=== PATIENT | male | born 1945 | race Caucasian/White ===

== ENCOUNTER → 2017-01-14 11:14 | Outpatient (CLI) | payer MEDICARE, BC ==
[~2017-01-14 11:14] MED LIST: BAYER CHEWABLE81 MG PO; BRILINTA90 MG PO; CRESTOR10 MG PO; LOPRESSOR25 MG PO; NEXIUM20 MG PO
[2017-03-04 11:38] VITALS: BMI 31.2
== END | disposition home or self-care (01) ==
LOC: D.CT 11:14
DX: R10.11 Right upper quadrant pain (principal)

== ENCOUNTER 2017-03-04 11:14 | Outpatient (CLI) | payer MEDICARE, BC ==
[2017-03-04] MEDS ORDERED: NEXIUM20 MG PO (11:35)
[2017-03-04] MEDS ORDERED: LOPRESSOR25 MG PO (11:35)
[2017-03-04] MEDS ORDERED: BAYER CHEWABLE81 MG PO (11:37)
[2017-03-04 11:56] LABS: BASOPHILS 0.4 % (0-2); EOSINOPHILS 2.3 % (0-7); HEMATOCRIT 44.6 % (42.0-54.0); HEMOGLOBIN 15.2 g/dL (13.5-17.5); IMMATURE GRANULOCYTES 0.6 % (0-5); LYMPHOCYTES 28.6 % (15-50); MCH 30.8 pg (26.0-34.0); MCHC 34.1 g/dL (31.0-37.0); MCV 90.3 fL (80.0-100.0); MEAN PLATELET VOLUME 12.1 fL (7.4-10.4); MONOCYTES 13.1 % (2-11); PLATELET COUNT 162 10x3/uL (130-400); RBC 4.94 10x6/uL (4.20-6.10); RDW 13.9 % (11.5-14.5); WBC 6.9 10x3/uL (4.8-10.8)
[2017-03-04 12:08] LABS: CALC OSMOLALITY 278 mosm/kg (275-300); CALCIUM 9.1 mg/dL (8.5-10.1); CARBON DIOXIDE 27.9 mmol/L (21.0-32.0); CHLORIDE - SERUM 104 mmol/L (98-107); CREATININE - SERUM 0.8 mg/dL (0.6-1.3); GLUCOSE 85 mg/dL (74-106); POTASSIUM - SERUM 5.4 mmol/L (3.5-5.1); SODIUM 139 mmol/L (136-145); UREA NITROGEN 17 mg/dL (7-18); eGFR NON AFRICAN AMERICAN > 90 mL/min (90-120)
[2017-03-04] MEDS ORDERED: CRESTOR10 MG PO (12:13)
[2017-03-04] MEDS ORDERED: BRILINTA90 MG PO (14:54)
== END 2017-03-04 19:00 | disposition home or self-care (01) ==
LOC: D.CATH 11:14
PROVIDERS: Internal Medicine Interventional Cardiology
DX: I25.119 Atherosclerotic heart disease of native coronary artery with unspecified angina pectoris (principal); Z01.812 Encounter for preprocedural laboratory examination

== ENCOUNTER 2017-03-11 10:43 | Outpatient (CLI) | payer MEDICARE, BC ==
[~2017-03-11] VITALS: Ht 172.7 cm; Wt 90.9 kg
--- NOTE | ~2017-03-11 | HEMODYNAMI ---
PATIENT:MARQUIS CASTAÑEDA MEDICAL RECORD: [id number] : 43 LOCATION:D.CAT ADMISSION DATE: 03/11/17 Generatedon:03/11/201713:27 Patient name: MARQUIS CASTAÑEDA Patient #: [id number] : 1945 Date of study: 03/11/2017 Page: Of Hemodynamic Procedure Report Patient Data Patient Demographics Procedure consent was obtained First Name: MARQUIS Gender: Male Last Name: MADDY : 1945 [facility] Initial: DANIEL Age: 71 year(s) Patient #: [id number] Race: SSN: [id number] Additional ID: [id number] Contact details Address: [address] [place] [address] State: [place] City: [place] Zip code: [address] Past Medical History Allergies Allergen Reaction Date Comments Reported Other allergy 03/04/2017 Statins Admission Admission Data Admission Date: 03/11/2017 Admission Time: 10:43 Arrival Date: 03/11/2017 Arrival Time: 13:00 Admit Source: Other Insurance Payor: Medicare Height (in.): 68 BSA: 2.07 (m2) Height (cm.): 172.72 BMI: 31.47 (kg/m2) Weight (lbs.): 207 Weight (kg.): 93.89 Procedure Procedure Types Cath Procedure PCI Procedure Coronary Stent Initial Miscellaneous Procedures Moderate Sedation up to 15 minutes Procedure Description Procedure Date Procedure Date: 03/11/2017 Procedure Start Time: 13:11 Procedure End Time: 13:25 Procedure Staff Name Function Zelalem Singletary MD Performing Physician Sophia Gaviria RT Scrub Michaela Cortez RN Nurse Haile Sosa RT Monitor Procedure Data Cath Procedure Fluoroscopy Diagnostic fluoroscopy Total fluoroscopy Time: 2.9 time: 2.9 min min Diagnostic fluoroscopy Total fluoroscopy dose: 279 dose: 279 mGy mGy Contrast Material Contrast Material Type Amount (ml) Isovue 300 52 Entry Location Entry Primary Successful Side Size Upsize Upsize Entry Closure Succes sful Closure Location (Fr) 1 (Fr) 2 (Fr) Remarks Device Remarks Femoral Right 6 Fr Exoseal artery Short Estimated blood loss: 10 ml Procedure Complications No complications Procedure Medications Medication Administration Route Dosage Oxygen NC 2 l/min Heparin Flush Bag added to field 2 bags (1000units/500ml NS) Lidocaine 2% added to field 20 Versed I.V. 1 mg Fentanyl I.V. 50 mcg Versed I.V. 1 mg Fentanyl I.V. 50 mcg Heparin Bolus I.V. 4000 units Hemodynamics Rest BSA: 2.07 (m2) HGB: 15.2 (g/dl) O2 Consumption: Estimated: 231.29 (ml/min) O2 Co nsumption indexed: Estimated:111.73 (ml/min/m) Heart Rate: 60 (bpm) Snapshots Pre Cath Intra NCS Post Cath Vital Signs Time Heart Resp SPO2 etCO2 TY4esdg NIBP (mmHg) Rhythm Pain Sedation Rate (ipm) (%) (mmHg) (mmHg) Status Level (bpm) 12:51:35 62 16 98 0 0 157/77(130) NSR 0 (11) 10(A) , No pain 12:55:53 62 16 98 0 0 152/89(136) NSR 0 (11) 10(A) , No pain 13:00:11 67 14 98 0 0 153/85(127) NSR 0 (11) 10(A) , No pain 13:04:27 62 15 96 0 0 138/89(112) NSR 0 (11) 10(A) , No pain 13:08:35 67 14 96 0 0 150/96(112) NSR 0 (11) 10(A) , No pain 13:12:51 65 16 97 0 0 151/86(120) NSR 0 (11) 9(A) , No pain 13:17:11 65 16 95 0 0 136/79(112) NSR 0 (11) 9(A) , No pain 13:21:23 78 16 96 0 0 142/80(120) NSR 0 (11) 9(A) , No pain 13:23:59 76 16 96 0 0 141/84(109) NSR 0 (11) 9(A) , No pain Medications Time Medication Route Dose Verified Delivered Reason Notes Effectiveness by by 12:52:32 Oxygen NC 2 Zelalem Michaela Per physician l/min [facility]quis Cortez RN, MD 12:52:56 Heparin Flush added 2 Zelalem Zel[facility]em [facility] field MD PARK NS) 12:53:06 Lidocaine 2% added 20ml Zelalem Zelalem used for to vial [facility] procedure field MD PARK 13:05:52 Versed I.V. 1 mg Zelalem Michaela for sedation [facility] Marquis Cortez RN, MD 13:06:03 Fentanyl I.V. 50 Zelalem Michaela for sedation mcg [facility] Marquis Cortez RN, MD 13:09:40 Versed I.V. 1 mg Zelalem Michaela for sedation [facility] Mar[facility] Cortez RN, MD 13:09:43 Fentanyl I.V. 50 Zelalem Michaela for sedation mcg [facility] Marquis Cortez RN, MD 13:14:16 Heparin Bolus I.V. 4000 Zelalem Barkleyca for dose units [facility] Cortez RN anticoagulation verified MD with dr warren Procedure Log Time Note 12:30:21 Michaela Cortez RN sent for patient. Start room use. 12:37:10 Informed consent obtained and on chart 12:37:18 Diagnostic Cath Status : Elective 12:37:48 Admit Source: Other 12:38:12 Arrival Date: 03/11/2017 1:00:00 PM 12:38:29 Insurance Payor : Medicare 12:38:47 Patient Height : 68 cm 12:38:52 Patient Weight : 207 kg 12:39:22 Time tracking: Regular hours 12:39:26 Plan of Care:Hemodynamics will remain stable., Cardiac rhythm will remain stable., Comfort level will be maintained., Respiratory function will remain adequate., Patient/ family verbilizes understanding of procedure., Procedure tolerated without complication., Recovers from procedure without complications.. 12:44:40 Patient received from Pre/Post Procedure Room to CCL 1 Alert and oriented. Tansferred to table in Supine position. 12:44:42 Warm blankets applied, and winston hugger turned on for patient comfort. 12:44:42 Correct patient and procedure confirmed by team. 12:44:43 ECG and BP/O2 sat monitors applied to patient. 12:50:21 Vital chart was started 12:52:32 Oxygen 2 l/min NC was administered by Michaela Cortez RN; Per physician; 12:52:56 Heparin Flush Bag (1000units/500ml NS) 2 bags added to field was administered by Zelalem Singletary MD; used for procedure; 12:53:06 Lidocaine 2% 20ml vial added to field was administered by Zelalem Singletary MD; used for procedure; 13:00:39 Baseline sample Acquired. 13:00:47 Rhythm: sinus rhythm 13:00:49 Full Disclosure recording started 13:00:54 H&P Date Dictated: 03/11/2017 New H&P dictated by physician.. 13:00:55 Pre-procedure instructions explained to patient. 13:00:55 Pre-op teaching completed and patient verbalized understanding. 13:00:57 Family in waiting room. 13:00:59 Patient NPO since Midnight. 13:01:00 Is the patient allergic to Iodine/contrast media? No. 13:01:02 Is patient on blood thinner?Yes 13:01:05 ACC The patient was administered the following blood thiners within the last 24 hours: ACCPlavix 13:01:08 Patient diabetic? No. 13:01:10 Previous problem with sedation/anesthesia? No ? 13:01:11 Snore? Yes 13:01:13 Sleep apnea? No 13:01:14 Deviated septum? No 13:01:15 Opens mouth fully? Yes 13:01:15 Sticks out tongue? Yes 13:01:17 Airway obstruction? No ? 13:01:19 Dentures? No ? 13:01:22 Pre procedure: left dorsailis pedis pulse 1+ Palpable, but thready & weak; easily obliterated 13:01:34 Patient pain scale 0/10 ?. 13:01:37 IV patent on arrival in left forearm with 0.9% NaCl at KVO. 13:01:40 Lab results completed and on chart. 13:01:47 Left groin area was prepped with chlora-prep and draped in sterile fashion 13:01:48 Alarms reviewed by R. N. 13:01:49 Sharps counted by scrub and verified by R.N. 13:05:12 --------ALL STOP TIME OUT------ 13:05:12 Final Timeout: patient, procedure, and site verified with staff and physician. All members of the team are in agreement. 13:05:17 Left groin site verified by team. 13:05:19 Physical assessment completed. ASA score P 2 - A patient with mild systemic disease as per Zelalem Singletary MD. 13:05:23 Sedation plan: IV Moderate Sedation Versed, Fentanyl 13:05:52 Versed 1 mg I.V. was administered by Michaela Cortez RN; for sedation; 13:06:03 Fentanyl 50 mcg I.V. was administered by Michaela Cortez RN; for sedation; 13:07:47 Zero performed for pressure channel P1 13:09:20 Use device set Femoral PCI 13:09:21 Tegaderm 4 x 4 opened to sterile field. 13:09:22 Acist Manifold opened to sterile field. 13:09:23 Acist Syringe opened to sterile field. 13:09:23 Acist Hand Control opened to sterile field. 13:09:24 Bag Decanter opened to sterile field. 13:09:24 Medline Cath Pack opened to sterile field. 13:09:24 Terumo 6Fr [place] Sheath opened to sterile field. 13:09:25 St Chandan 260cm J .035 wire opened to sterile field. 13:09:25 Prediculous BasixCompak Inflation Kit opened to sterile field. 13:09:38 Medtronic Launcher 6Fr HS I guide catheter opened to sterile field. 13:09:39 Torres Reagan 300cm 0.014 guide wire opened to sterile field. 13:09:40 Versed 1 mg I.V. was administered by Michaela Cortez RN; for sedation; 13:09:43 Fentanyl 50 mcg I.V. was administered by Michaela Cortez RN; for sedation; 13:11:42 Procedure started. 13:11:46 Local anesthetic to left femerol artery with Lidocaine 2% by Zelalem Singletary MD.INITIAL ACCESS ONLY 13:13:39 A 6 Fr Short sheath was inserted into the Right Femoral artery 13:14:16 Heparin Bolus 4000 units I.V. was administered by Michaela Cortez RN; for anticoagulation; dose verified with dr warren 13:14:22 6 Fr HS 1 guide catheter was inserted over the wire 13:15:15 Reagan wire advanced. 13:17:02 Wire advanced across lesion. 13:20:03 Inflation Number: 1 A Medtronic Integrity 3.0 X 12 stent was prepped and advanced across the Mid RCA. The stent was deployed at 12 RONA for 0:45 (min:sec). 13:20:40 Stent catheter was removed intact over wire. 13:20:42 Wire removed. 13:20:42 Guide catheter removed. 13:20:52 Cordis 6Fr Exoseal opened to sterile field. 13:21:04 Sheath removed intact; hemostasis achieved with Exoseal to the Right Femoral artery. 13:21:06 Procedure ended.(Physican Out) 13:21:36 Fluoroscopy time 02.90 minutes. 13:21:40 Fluoroscopy dose: 279 mGy 13:21:40 Flurop Dose total: 279 13:21:44 Contrast amount:Isovue 300 52ml. 13:21:46 Sharps counted by scrub and verified by R.N. 13:21:47 Insertion/operative site no bleeding no hematoma. 13:21:52 Post-op/insertion site Left Femoral artery dressed using a 4 x 4 and Tegaderm. 13:21:54 Post Procedure Pulses reassessed and unchanged 13:21:57 Post-procedure physical assessment completed. ASA score P 2 - A patient with mild systemic disease as per Zelalem Singletary MD. 13:22:00 Post procedure rhythm: unchanged. 13:22:02 Estimated blood loss: 10 ml 13:22:04 Post procedure instruction explained to patient.Patient verbalizes understanding. 13:22:04 Patient needs reinforcement of post procedure teaching. 13:22:11 Procedure type changed to Cath procedure, PCI procedure, Coronary Stent Initial, Miscellaneous Procedures, Moderate Sedation up to 15 minutes 13:22:17 Procedure Complication : No complications 13:22:41 Procedure and supply charges have been captured, reviewed, submitted and are correct. 13:25:39 Vital chart was stopped 13:25:40 See physician's report for complete and final results. 13:25:43 Report given to Pre/Post Procedure Room. 13:25:46 Patient transfered to Pre/Post Procedure Room with Stretcher. 13:25:49 Procedure ended. 13:25:49 Full Disclosure recording stopped 13:25:53 End room use (Document Last) Intervention Summary Intervention Notes Time ActionType Lesion and Equipment Action# Pressure Duration Attributes Used 13:20:03 Place stent Mid RCA Medtronic 1 12 00:45 Integrity 3.0 X 12 stent Device Usage Item Name Manufacture Quantity Catalog Hospital Part Current Minimal Lot# / Number Charge Number Stock Stock Serial# Code Tegaderm 4 3M 1 [id number] [id number] 398402 5 x 4 Acist Acist 1 52102 543803 188766 711187 5 Manifold Medical Systems Inc Acist Acist 1 82044 620068 217121 231405 20 Syringe Medical Systems Inc Acist Hand Acist 1 46126 951812 119937 802960 5 Control Medical Systems Inc Bag Microtek 1 2002S 935966 83997 119564 5 Decanter Medical Inc. Medline Cardinal 1 [id number] 180254 11550 774961 5 Cath Pack Health Terumo 6Fr Terumo 1 [id number] 923404 903611 887632 [address] St Chandan 1 315435 637887 217662 741909 30 260cm J .035 wire Merit Merit 1 [id number] 543401 546366 243350 15 BasixCompak Medical Inflation Kit Medtronic Medtronic 1 [id number] 272877 20342 091838 1 Launcher 6Fr HS I guide catheter Torres Torres 1 [id number] 481106 511901 577669 1 Reagan Vascular 300cm 0.014 guide wire Medtronic Medtronic 1 [id number] 095412 975634 951193 9 [id number] Integrity 3.0 X 12 stent Cordis 6Fr Cardinal 1 EX600 837012 686869 330070 10 [facility]Star Anesthesia Signature Audit Morton Stage Time Signature Unsigned Intra-Procedure 03/11/2017 Haile Sosa 1:27:17 PM RT(R) Signatures Monitor : Haile Sosa RT Signature : Date : Time : [address] [address]
[2017-03-11] MEDS ORDERED: PLAVIX75 MG PO (11:40)
[2017-03-11 11:44] VITALS: BP 138/72; Ht 172.7 cm; Wt 90.9 kg
[2017-03-11 12:05] LABS: BASOPHILS 0.6 % (0-2); EOSINOPHILS 3.7 % (0-7); HEMATOCRIT 41.5 % (42.0-54.0); HEMOGLOBIN 14.3 g/dL (13.5-17.5); IMMATURE GRANULOCYTES 0.6 % (0-5); LYMPHOCYTES 24.5 % (15-50); MCH 30.8 pg (26.0-34.0); MCHC 34.5 g/dL (31.0-37.0); MCV 89.2 fL (80.0-100.0); MEAN PLATELET VOLUME 11.3 fL (7.4-10.4); MONOCYTES 13.3 % (2-11); NEUTROPHILS 57.3 % (40-80); PLATELET COUNT 157 10x3/uL (130-400); RBC 4.65 10x6/uL (4.20-6.10); RDW 13.7 % (11.5-14.5); WBC 6.5 10x3/uL (4.8-10.8)
[2017-03-11 12:13] LABS: ANION GAP 12.4 mmol/L (8-16); CALCIUM 9.4 mg/dL (8.5-10.1); CARBON DIOXIDE 27.6 mmol/L (21.0-32.0); CREATININE - SERUM 1.1 mg/dL (0.6-1.3)
--- NOTE | 2017-03-11 15:02 | NUR ---
1355 LYING FLAT, ROOM AIR WITH NO RESP DISTRESS. NSR RATE 62 W NO C/O CHEST PAIN. PULSES PALP X 4. L GROIN 6F EXOSEAL C/D/I WITH NO HEMATOMA OR BLEEDING NOTED. SON AT BEDSIDE.
--- NOTE | 2017-03-11 15:06 | NUR ---
1430 RESTING WITH EYES CLOSED, ALL VITALS WNL. L GROIN REMAINS C/D/I WITH NO HEMATOMA OR BLEEDING.
--- NOTE | 2017-03-11 16:56 | NUR ---
1530 L GROIN REMAINS C/D/I WITH NO HEMATOMA OR BLEEDING. EATING SANDWICH WITH ASSIST FROM SON AT BEDSIDE. ALL VITALS WNL. 1645 PIV REMOVED FROM LEFT HAND WITH BANDAID APPLIED. UP TO BEDSIDE TO DRESS. R GROIN REMAINS C/D/I WITH NO HEMATOMA OR BLEEDING.
--- NOTE | 2017-03-14 10:14 | HP ---
PATIENT: MARQUIS CASTAÑEDA MEDICAL RECORD: [id number] ACCOUNT: [id number] LOCATION:[facility] : 43 ADMISSION DATE: 03/11/17 HISTORY AND PHYSICAL EXAMINATION HISTORY OF PRESENT ILLNESS: A 71-year-old gentleman with known history of coronary artery disease, status post intervention to the LAD ____, he is being brought back in to the lab for intervention to the right coronary, previous intervention to the LAD. PAST MEDICAL HISTORY: Includes: 1. History of coronary artery disease. 2. Dyslipidemia. ALLERGIES: INTOLERANT TO STATINS. MEDICATIONS: Include losartan 100 mg p.o. daily, Nexium 40 mg p.o. daily, Plavix 75 daily and aspirin 81 mg p.o. daily. SOCIAL HISTORY: He is a nonsmoker. He takes care of all of his ADLs. PHYSICAL EXAMINATION: GENERAL: Pleasant gentleman in no acute distress. HEENT: Normocephalic, atraumatic. NECK: No JVD or bruit. HEART: Regular. LUNGS: Munoz clear. ABDOMEN: Soft, nontender. EXTREMITIES: Pulse 2+ with no edema. IMPRESSION AND PLAN: Intervention of the right coronary as described above. TRANSINT:[id number] Voice Confirmation ID: [id number] DOCUMENT ID: [id number] MARTHA ROSE MD at 1014 CC: [id number] DICTATION DATE: 03/11/17 1325 SLEEP MANAGER: 03/11/17 1430 DEP CLI 03/11/17 [address] [place] [address]
--- NOTE | 2017-03-22 13:19 | OP ---
PATIENT NAME: MARQUIS CASTAÑEDA MEDICAL RECORD: [id number] :43 LOCATION:D.CAT ADMISSION DATE: SURGEON: MARTHA ROSE MD DATE OF OPERATION: 03/11/2017 PTCA Stent Report For catheterization report, please see report dictated on 03/04/2017. DESCRIPTION OF PROCEDURE: After a 6-Danish sheath placed in the left femoral artery, a hockey stick guide catheter provided excellent guide catheter support followed by a 300 cm [place] XT wire was placed across the tightly occluded 80% right down ____ the vessel. This was followed by a 3.0 x 12 mm Integrity nondrug eluting stent. It was inflated up to 14 atmospheres for 45 seconds. Final angiography shows an excellent resolution of 80% stenosis, no significant residual. GOVIND flow was 3 at the end of the procedure. There was nice pumping in the distal vasculature. Sheath closed with ExoSeal device. The patient was previously on Plavix, heparin was given in the lab. TRANSINT:[id number] Voice Confirmation ID: [id number] DOCUMENT ID: [id number] 03/19/2017 Edited to correct date of service, dmm. MARTHA ROSE MD at 1319 CC: [id number] DICTATION DATE: 03/11/17 1324 ASSEMBLER FLUORESCENT LIGHTS: 03/11/17 2322 DEP CLI 03/11/17 [address] [place] [address]
== END 2017-03-11 17:08 | disposition home or self-care (01) ==
LOC: D.CATH 10:43
PROVIDERS: Internal Medicine Interventional Cardiology
DX: I25.10 Atherosclerotic heart disease of native coronary artery without angina pectoris (principal)

== ENCOUNTER → 2019-05-03 08:51 | Outpatient (CLI) | payer MEDICARE, BC ==
[2017-03-11 11:44] VITALS: BMI 30.4
[~2019-05-03 08:51] MED LIST changes: +PLAVIX75 MG PO
--- NOTE | 2019-05-08 14:16 | EC ---
PATIENT:MARQUIS CASTAÑEDA DATE OF SERVICE: 05/03/19 SEX: M MEDICAL RECORD: [id number] DATE OF : 43 LOCATION:[facility] AGE OF PATIENT: 73 ADMISSION DATE: 05/03/19 REFERRING PHYSICIAN: INTERPRETING PHYSICIAN: MARTHA ROSE MD ECHOCARDIOGRAM REPORT ECHO CHARGES 4 ECHO COMPLETE Date: 05/03/19 CLINICAL DIAGNOSIS: H/O CAD/HTN ECHOCARDIOGRAPHIC MEASUREMENTS (adult normal given) AC root (d.<3.7cm) 3.1 cm LV Septum d (<1.2 cm> 1.3 cm Valve Excursion 1.8 cm LV Septum (systole) 2.0 cm Left Atria (s.<4.0cm> 4.7 cm LVPW d(<1.2cm) 1.3 cm RV (d.<2.3cm) 2.4 cm LVPW (sytole) 2.3 cm LV diastole(<5.6CM) 5.3 cm MV E-F(>70mm/sec) cm LV systole 2.8 cm LVOT Diameter 1.8 cm MV exc.(>10mm) cm Est.ejection fraction (50-75%) % DOPPLER: LVIT cm/sec A 57.0 cm/sec E 63.0 cm/sec LA cm/sec RVSP 25.0 mmHg LVOT 93.0 cm/sec AOP1/2T m/s Asc. Ao 106 cm/sec RVOT 51.0 cm/sec RA cm/sec PA 73.0 cm/sec AV Gradient Peak 4.5 mmHg AV Mean 2.2 mmHg AV Area 2.4 cm MV Gradient Peak 3.7 mmHg MV Mean 1.1 mmHg MV Area cm COMMENTS: OP - HC Repulping Supervisor: 1 ALVINO BRYCE Supervisor Gate Services: 3 Dr. Singletary TAPE# PACS Pericardial Effusion N DATE OF SERVICE: Adequate 2-D echo, color-flow and spectral Doppler, and M-mode. LVH is present. LV internal dimensions are normal. Wall motion is normal. EF is greater than or equal to 55%. Aortic valve is tricuspid. No evidence of stenosis by Doppler interrogation. Left atrium is dilated at 4.7 cm. Mitral valve shows no prolapse. Mild MR. Right-sided chambers are grossly normal. Trace TR. ECHOCARDIOGRAM REPORT [id number] MARQUIS CASTAÑEDA TRANSINT:[id number] Voice Confirmation ID: [id number] DOCUMENT ID: [id number] MARTHA ROSE MD at 1416 CC: [id number] DICTATION DATE: 05/04/19 1337 COMMUNITY OUTREACH WORKER: 05/04/19 1529 [facility] CLI 05/03/19 [id number] [place] [id number]
== END | disposition home or self-care (01) ==
LOC: D.HCCARDIO 08:51
PROVIDERS: ATTEND Internal Medicine Interventional Cardiology
DX: I10 Essential (primary) hypertension (principal)

== ENCOUNTER → 2019-08-30 08:59 | Outpatient (CLI) | payer MEDICARE, BC ==
[2017-03-11 11:44] VITALS: BMI 30.4
--- NOTE | 2019-09-01 09:07 | EC ---
PATIENT:MARQUIS CASTAÑEDA DATE OF SERVICE: 08/30/19 SEX: M MEDICAL RECORD: [id number] DATE OF : 43 LOCATION:[facility] AGE OF PATIENT: 74 ADMISSION DATE: 08/30/19 REFERRING PHYSICIAN: INTERPRETING PHYSICIAN: MARTHA ROSE MD ECHOCARDIOGRAM REPORT ECHO CHARGES 4 ECHO COMPLETE Date: 08/30/19 CLINICAL DIAGNOSIS: CHEST PAIN HX CAD/STENTS ECHOCARDIOGRAPHIC MEASUREMENTS (adult normal given) AC root (d.<3.7cm) 3.5 cm LV Septum d (<1.2 cm> 1.3 cm Valve Excursion 1.7 cm LV Septum (systole) 1.4 cm Left Atria (s.<4.0cm> 3.5 cm LVPW d(<1.2cm) 1.3 cm RV (d.<2.3cm) 3.3 cm LVPW (sytole) 1.6 cm LV diastole(<5.6CM) 4.2 cm MV E-F(>70mm/sec) cm LV systole 2.6 cm LVOT Diameter 1.7 cm MV exc.(>10mm) 1.2 cm Est.ejection fraction (50-75%) % DOPPLER: LVIT cm/sec A 90.0 cm/sec E 65.0 cm/sec LA cm/sec RVSP 24 mmHg LVOT 92 cm/sec AOP1/2T m/s Asc. Ao 108 cm/sec RVOT 74 cm/sec RA cm/sec PA 94 cm/sec AV Gradient Peak 4.68 mmHg AV Mean 2.58 mmHg AV Area 2.0 cm MV Gradient Peak 3.81 mmHg MV Mean 1.08 mmHg MV Area cm COMMENTS: Aircraft Ordnance Technician: 2 SHIVAM OLIVIA Cashier Courtesy Booth: 3 Dr. Singletary TAPE# PACS Pericardial Effusion N DATE OF SERVICE: Adequate 2D, color flow, spectral Doppler, and M-mode. Mild LVH. LV internal dimensions are normal. Wall motion is normal. EF is greater than or equal to 55%. Aortic valve is tricuspid. No evidence of stenosis by Doppler interrogation. Left atrium is normal at 3.5 cm. Mitral valve shows no prolapse. Trace MR. Right-sided chambers are grossly normal. Mild TR. ECHOCARDIOGRAM REPORT [id number] MARQUIS CASTAÑEDA TRANSINT:[id number] Voice Confirmation ID: [id number] DOCUMENT ID: [id number] MARTHA ROSE MD at 0907 CC: [id number] DICTATION DATE: 08/31/19 140 SCIENCE INTERPRETER: 08/31/19 1423 DEP CLI 08/30/19 [id number] [place] [address]
--- NOTE | 2019-09-05 11:41 | ST ---
PATIENT:MARQUIS CASTAÑEDA MEDICAL RECORD: [id number] SEX: M LOCATION:[facility] ORDER #: ADMISSION DATE: 08/30/19 AGE OF PATIENT: 74 REFERRING PHYSICIAN: INTERPRETING PHYSICIAN: DARLENE KWON MD DATE OF SERVICE: 08/30/2019 Nuclear Stress Test INDICATIONS: Angina, hypertension, hyperlipidemia, abnormal ECG, diabetes. DESCRIPTION OF THE PROCEDURE: He was exercised on standard Lexiscan protocol with 33 mCi of sestamibi injected at peak stress, 11 mCi used previously for rest images. FINDINGS: Gated SPECT reveals preserved ejection fraction at 78% with good wall motion and thickening and brightening throughout all segments. SPECT Imaging: Cardiolite was used as myocardial fusion agent. There is homogeneous uptake throughout all segments at rest and stress with no evidence of inducible ischemia or previous infarction. OVERALL IMPRESSION: 1. This is a normal nuclear stress test with no evidence of inducible ischemia or previous infarction. 2. Gated SPECT reveals a preserved ejection fraction at 78%. In this patient with ongoing symptomatology, the current scan does not suggest the presence of hemodynamically significant coronary artery disease. Evaluate noncardiac etiology of chest pain. TRANSINT:[id number] Voice Confirmation ID: [id number] DOCUMENT ID: [id number] DARLENE KWON MD at 1141 CC: VILMA BAIG [id number] DICTATION DATE: 09/01/19 1110 DIRECTOR OF CONTENT MARKETING: 09/01/19 2315 [facility] CLI 08/30/19 [facility] [address] [place] [address]
== END | disposition home or self-care (01) ==
LOC: D.HCCECHO 08:59
PROVIDERS: ATTEND Internal Medicine Interventional Cardiology
DX: I25.10 Atherosclerotic heart disease of native coronary artery without angina pectoris (principal)